=== PATIENT | female | born 1995 ===

== ENCOUNTER 2018-01-25 13:48 | Outpatient (CLI) | payer MEDICAID ==
[2018-01-25] MEDS ORDERED: HYDROXYZINE PAMOATE 50 MG CAPSULE PO ONE (14:11)
[2018-01-25 14:33] LABS: APPEARANCE,URINE CLEAR; BILIRUBIN,URINE NEGATIVE (NEGATIVE); COLOR,URINE STRAW; GLUCOSE, URINE NEGATIVE (NEGATIVE); KETONES,URINE NEGATIVE (NEGATIVE); LEUKOCYTE ESTERASE,URINE NEGATIVE (NEGATIVE); NITRITE,URINE NEGATIVE (NEGATIVE); PROTEIN,URINE NEGATIVE (NEGATIVE); URINE SPECIFIC GRAVITY 1.015; UROBILINOGEN,URINE NEGATIVE mg/dL (<2.0)
[2018-01-25] MEDS ORDERED: HYDROXYZINE PAMOATE 50 MG CAPSULE ONE (14:35)
[2018-01-25 15:10] LABS: URINE AMPHETAMINES SCREEN NEGATIVE; URINE BARBITURATES SCREEN NEGATIVE; URINE BENZODIAZEPINES SCREEN NEGATIVE; URINE COCAINE SCREEN NEGATIVE; URINE METHADONE SCREEN NEGATIVE; URINE PHENCYCLIDINE SCREEN NEGATIVE
[2018-01-25 15:19] LABS: URINE MARIJUANA (THC) SCREEN UNCONFIRMED POSITIVE
== END 2018-01-25 14:57 | disposition home or self-care (01) ==
LOC: LC 13:48
PROVIDERS: ATTEND Obstetrics & Gynecology
PROC: 4A1HXCZ Monitoring of Products of Conception, Cardiac Rate, External Approach (ICD-10-PCS; principal; 2018-01-25)
DX: O26.892 Other specified pregnancy related conditions, second trimester (principal); R10.2 Pelvic and perineal pain; Z3A.21 21 weeks gestation of pregnancy
CPT/HCPCS: 59899; 81001; 80307; J3490